=== PATIENT | male | born 1960 | race American Indian/Alaskan Native ===

== ENCOUNTER 2017-06-30 17:13 | Emergency (ER) | payer MEDICAID ==
--- NOTE | 2017-06-30 17:14 | ED PDOC ---
Arrival/HPI - General Time Seen by Provider: 06/30/17 17:13 Historian: Patient - History of Present Illness Narrative History of Present Illness (Text): 06/30/17 17:14 57 y/o male, no significant pmh, nkda, c/o Past Medical History - Infectious Disease Hx of Infectious Diseases: None - Tetanus Immunization Tetanus Immunization: Unknown - Past Medical History Past Medical History: No Previous - Pulmonary Other/Comment: seasonal allery - HEENT Hx HEENT Disorder: Yes Other/Comment: Congestion, nasal polyp - Psychiatric Hx Psychophysiologic Disorder: No Hx Substance Use: No - Past Surgical History Past Surgical History: No Previous - Surgical History Hx Appendectomy: Yes Other/Comment: nasal polyp removed 04/2014 - Anesthesia Hx Anesthesia: Yes Hx Anesthesia Reactions: No Hx Malignant Hyperthermia: No - Suicidal Assessment Feels Threatened In Home Enviroment: No Family/Social History Smoking Status: Never Smoked Hx Alcohol Use: No Hx Substance Use: No Hx Substance Use Treatment: No Allergies/Home Meds Allergies/Adverse Reactions: Allergies MDX Ibuprofen [From Motrin] Adverse Reaction (Verified 02/15/15 22:29) SHORTNESS OF BREATH Grass Allergy (Uncoded 05/16/14 07:23) CONGESTION Home Medications: Home Meds Medication Instructions Recorded Confirmed Mometasone Furoate [Nasonex] 0.05 mg NS BID PRN 05/16/14 02/15/15 Disposition/Present on Arrival - Present on Arrival History of DVT/PE: No History of Uncontrolled Diabetes: No Urinary Catheter: No History Surgical Site Infection Following: None - Disposition
[2017-06-30 17:53] VITALS: BP 128/89; PULSE 69; RESP 16; TEMP 98.5; O2SAT 98; BMI 29.2
== END 2017-06-30 17:38 | disposition left against medical advice (07) ==
LOC: ED 17:13
DX: Z02.89 Encounter for other administrative examinations (principal); I10 Essential (primary) hypertension